=== PATIENT | female | born 1965 | race Caucasian/White ===

== ENCOUNTER 2020-08-16 23:21 | Observation (INO) ==
[2020-08-16 23:45] LABS: Basophils # 0.1 10*3/uL (0.0-0.2); Basophils % 0.4 % (0.0-0.8); Eosinophils % 0.1 % (0.00-10.9); Hematocrit 42.9 VOL% (35.7-47.0); Hemoglobin 14.6 GM/DL (12.0-16.0); Immature Granulocytes % 0.8 %; Immature Granulocytes Absolute 0.11 #; Lymphocytes # 2.5 10*3/uL (1.4-4.0); Lymphocytes % 16.9 % (21.3-54.2); Mean Corpuscular Volume 90.7 FL (87-102); Monocytes % 5.8 % (1.7-12.7); Platelet Count 338 T/CUMM (130-400); Red Blood Count 4.73 MC/CUMM (3.8-5.5); Red Cell Distribution Width 12.6 % (9.3-17.3); White Blood Count 14.6 T/CUMM (4-12)
[2020-08-17 00:12] LABS: Albumin 4.4 G/DL (3.4-5.0); Bilirubin,Total 1.8 MG/DL (0.2-1.0); Calcium 11.9 MG/DL (8.5-10.1); Osmolality,Calculated 285.1 MOS/KG (273-304); Potassium 3.1 MMOL/L (3.5-5.1); Total Protein 8.7 G/DL (6.4-8.2)
[2020-08-17] MEDS ORDERED: SODIUM CHLORIDE 0.9% 500 ML IV STA (01:35)
[2020-08-17] MEDS ORDERED: NITROGLYCERIN 2% OINT 1 INCH/GM PACK TOP STA (01:36)
[2020-08-17] MEDS ORDERED: ASPIRIN 325 MG TABLET PO STA (01:36)
[2020-08-17] MEDS ORDERED: METOPROLOL TARTRATE 5 MG/5 ML VIAL IV STA (01:36)
[2020-08-17] MEDS ORDERED: MORPHINE 4 MG/1 ML VIAL IV STA (01:36)
[2020-08-17] MEDS ORDERED: ONDANSETRON 4 MG/2 ML VIAL IV STA (01:36)
[2020-08-17] MEDS ORDERED: ENOXAPARIN 100 MG/ML SYRINGE SUBCUT STA (01:53)
[2020-08-17] MEDS ORDERED: POTASSIUM CHLORIDE 20 MEQ TABLET PO STA (01:54)
[2020-08-17 02:15] LABS: PT Patient Result 11.3 SECS (10.5-12.0)
[2020-08-17] MEDS ORDERED: DEXTROSE 50% 25 GM/50 ML VIAL IV PRN (05:21)
[2020-08-17] MEDS ORDERED: GLUCAGON 1 MG VIAL IM PRN (05:21)
[2020-08-17] MEDS ORDERED: DOCUSATE SODIUM 100 MG CAPSULE PO PRN (05:32)
[2020-08-17] MEDS ORDERED: hydrALAZINE 20 MG/1 ML VIAL IV PRN (05:32)
[2020-08-17] MEDS ORDERED: ONDANSETRON 4 MG/2 ML VIAL IV PRN (05:32)
[2020-08-17] MEDS ORDERED: ACETAMINOPHEN 325 MG TABLET PO PRN (05:32)
[2020-08-17] MEDS: SODIUM CHLORIDE 0.9% 1,000 ML IV SCH ×3 (06:25→22:28)
[2020-08-17 06:31] LABS: Risk Ratio 2.86; Thyroid Stimulating Hormone 1.98 uIU/ml (0.358-3.74); VLDL Cholesterol 15.6 MG/DL
[2020-08-17 08:29] LABS: Calcium 11.3 MG/DL (8.5-10.1); Osmolality,Calculated 278.4 MOS/KG (273-304); Potassium 3.1 MMOL/L (3.5-5.1)
[2020-08-17] MEDS ORDERED: CALCIUM (CARBONATE) 600 MG TABLET PO SCH (09:00)
[2020-08-17] MEDS: PANTOPRAZOLE 40 MG TABLET PO SCH ×2 (09:12→22:26)
[2020-08-17] MEDS: amLODIPine 5 MG TABLET PO SCH (09:12)
[2020-08-17] MEDS: carvediloL 6.25 MG TABLET PO SCH ×2 (10:10→22:26)
[2020-08-17] MEDS: MELOXICAM 7.5 MG TABLET PO SCH (10:11)
[2020-08-17] MEDS: POTASSIUM CHLORIDE 20 MEQ TABLET PO PRN ×3 (10:11→15:28)
[2020-08-17 10:29] LABS: Bacteria,Urine Occasional /HPF (Few); Bilirubin,Urine Negative (Negative); Blood, Urine Negative (Negative); Glucose,Urine (UA) Negative (Negative); Hyaline Casts,Urine 36 /LPF (0-3); Ketones,Urine Negative (Negative); Mucus,Urine Occasional /LPF (Occasional); Nitrite,Urine Negative (Negative); Protein,Urine Negative; RBC,Urine 6 /HPF (0-4); Squamous Epithelial Cell,Urine Few /HPF (0-10); Urine Appearance Slightly Hazy (Clear); Urine Color Yellow (Yellow); Urine Specific Gravity 1.018 (1.001-1.035); Urine Urobilinogen < 2.0 EU/DL (0.2-1.0)
[2020-08-17 11:19] LABS: Barbiturates Screen,Urine Negative (Negative); Benzodiazepines Screen,Urine Negative (Negative); Cannabinoid Screen,Urine Negative (Negative); Phencyclidine Screen,Urine Negative (Negative)
[2020-08-17] MEDS: ENOXAPARIN 100 MG/ML SYRINGE SUBCUT SCH (15:28)
[2020-08-18 05:49] LABS: Basophils % 0.7 % (0.0-0.8); Eosinophils # 0.1 10*3/uL (0.0-0.87); Eosinophils % 2.5 % (0.00-10.9); Hematocrit 31.5 VOL% (35.7-47.0); Hemoglobin 10.5 GM/DL (12.0-16.0); Immature Granulocytes % 0.5 %; Immature Granulocytes Absolute 0.03 #; Lymphocytes # 1.9 10*3/uL (1.4-4.0); Lymphocytes % 33.7 % (21.3-54.2); Mean Corpuscular HGB Conc 33.3 GM/DL (32-36); Mean Corpuscular Volume 95.2 FL (87-102); Monocytes % 9.8 % (1.7-12.7); Neutrophils % 52.8 % (38.7-73.9); Platelet Count 198 T/CUMM (130-400); Red Blood Count 3.31 MC/CUMM (3.8-5.5); Red Cell Distribution Width 12.9 % (9.3-17.3); White Blood Count 5.6 T/CUMM (4-12)
[2020-08-18 07:22] LABS: Total Protein (Chem) 8.1 G/DL (6.4-8.3)
[2020-08-18] MEDS: SODIUM CHLORIDE 0.9% 1,000 ML IV SCH (07:47)
[2020-08-18 07:49] VITALS: BP 106/62
[2020-08-18] MEDS: ENOXAPARIN 100 MG/ML SYRINGE SUBCUT SCH (08:10)
[2020-08-18] MEDS: MELOXICAM 7.5 MG TABLET PO SCH (08:10)
[2020-08-18] MEDS: amLODIPine 5 MG TABLET PO SCH (08:10)
[2020-08-18] MEDS: carvediloL 6.25 MG TABLET PO SCH (08:10)
[2020-08-18] MEDS: PANTOPRAZOLE 40 MG TABLET PO SCH (08:10)
[2020-08-18 08:26] LABS: Albumin 2.8 G/DL (3.4-5.0); Bilirubin,Total 0.7 MG/DL (0.2-1.0); Calcium 8.7 MG/DL (8.5-10.1); Osmolality,Calculated 284.4 MOS/KG (273-304); Potassium 3.7 MMOL/L (3.5-5.1); Total Protein 6.1 G/DL (6.4-8.2)
[2020-08-18 08:45] LABS: Basophils % 0.7 % (0.0-0.8); Eosinophils # 0.2 10*3/uL (0.0-0.87); Hematocrit 33.2 VOL% (35.7-47.0); Immature Granulocytes % 0.5 %; Immature Granulocytes Absolute 0.03 #; Lymphocytes # 1.7 10*3/uL (1.4-4.0); Lymphocytes % 30.7 % (21.3-54.2); Mean Corpuscular HGB Conc 33.1 GM/DL (32-36); Mean Corpuscular Volume 95.1 FL (87-102); Mean Platelet Volume 10.1 FL (9.6-12.0); Monocytes % 9.5 % (1.7-12.7); Neutrophils % 55.6 % (38.7-73.9); Platelet Count 199 T/CUMM (130-400); Red Blood Count 3.49 MC/CUMM (3.8-5.5); White Blood Count 5.7 T/CUMM (4-12)
[2020-08-18 08:58] LABS: Albumin (SPE) 4.9 G/DL (3.2-5.3); Albumin (SPE) Rel % 60.2 %; Alpha 1 (SPE) 0.1 G/DL (0.1-0.4); Alpha 1 (SPE) Rel % 1.5 %; Gamma (SPE) 1.2 G/DL (0.7-1.7); Gamma (SPE) Rel % 14.3 %
[2020-08-18] MEDS ORDERED: ASPIRIN CHEW 81 MG TABLET PO SCH (09:00)
[2020-08-18 10:53] LABS: Calcium 8.8 MG/DL (8.5-10.1); Osmolality,Calculated 284.4 MOS/KG (273-304); Potassium 3.6 MMOL/L (3.5-5.1)
== END 2020-08-18 10:50 | disposition home or self-care (01) ==
LOC: N.ED 23:21 → N.EDINP 23:21 → SUATTDRO 08-17 05:19 → N.CC 08-17 05:47 → N.5E 08-17 16:37
PROVIDERS: ADMIT Internal Medicine; ATTEND Internal Medicine